=== PATIENT | male | born 1960 | race Caucasian/White ===

== ENCOUNTER 2020-11-26 17:26 | Emergency (ER) | payer OTHER ==
[~2020-11-26] VITALS: Ht 172.7 cm; Wt 90.7 kg
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
[2020-11-26 17:28] VITALS: BP 155/71
[2020-11-26 19:14] LABS: ABSOLUTE NEUTROPHILS 3.4 thou/uL (1.4-8.2); BASOPHILS 1.3 % (0.0-2.0); HEMATOCRIT 38.8 % (42.0-52.0); HEMOGLOBIN 12.6 gm/dL (14.0-18.0); LYMPHOCYTES 33.6 % (24.0-44.0); MCH 27.4 pg (26.0-34.0); MCHC 32.5 g/dL (28.0-37.0); MCV 84.3 fL (80.0-100.0); MONOCYTES 10.3 % (1.0-8.0); PLATELET COUNT 271 thou/uL (150-400); POLYS 48.8 % (36.0-66.0); RDW 17.2 % (10.5-14.5)
[2020-11-26 19:25] LABS: CALCIUM 8.5 mg/dL (8.5-10.1); CREATININE 1.1 mg/dL (0.7-1.3); POTASSIUM 4.3 mmol/L (3.5-5.1)
[2020-11-26 19:31] LABS: ALBUMIN 2.9 g/dL (3.4-5.0); TOTAL BILIRUBIN 0.4 mg/dL (0.2-1.0)
[2020-11-27 01:44] VITALS: BP 125/56
[2020-11-27 01:56] VITALS: BP 136/73
--- NOTE | 2020-11-27 07:37 | EKG ---
[address] [address] ELECTROCARDIOGRAM REPORT Name: AZAEL CORDOVA [facility] [id number] Admission: 11/26/20 Attend Phys: Discharge: 11/27/20 Date of : 58 Report #: [id number] [facility] ED Test Date: 2020-11-26 Test Time: 18:16:04 Pat Name: AZAEL CORDOVA Department: Room: [facility] Gender: M [employer] Dean: adam : 1960 Requested By: Charles Baltazar Order Number: [id number] MD: Clay Guevara Measurements Intervals [place] Rate: 66 P: 65 MO: 124 QRS: 56 QRSD: 79 T: 52 QT: 444 QTc: 466 Interpretive Statements Sinus rhythm Baseline wander in lead(s) I,II,aVR Compared to ECG 06/19/2006 10:32:22 No significant changes Electronically Signed On 11-27-2020 7:37:48 CDT by Clay Guevara [email or web address] <ELECTRONICALLY SIGNED> By: Clay Guevara MD, [facility] 11/27/20 0737 15 15 Clay Guevara MD, FACC /EPI
[2020-11-27] MEDS ORDERED: DICYCLOMINE HCL20 MG PO (08:09)
[2020-11-27] MEDS ORDERED: LEVOTHYROXINE75 MCG PO (08:09)
[2020-11-27] MEDS ORDERED: TAMSULOSIN HCL0.4 MG PO (08:10)
[2020-11-27] MEDS ORDERED: FINASTERIDE5 MG PO (08:10)
[2020-11-27] MEDS ORDERED: PROTONIX40 M2 PO (08:10)
[2020-11-27] MEDS ORDERED: FENOFIBRATE160 MG PO (08:10)
[2020-11-27] MEDS ORDERED: NEURONTIN 300M300 M2 PO (08:10)
== END 2020-11-27 02:20 ==
LOC: ER 17:26 → EROBS 19:08 → ER 19:08 → EROBS 19:28 → ER 11-27 02:20
PROVIDERS: Emergency Medicine
DX: U07.1 COVID-19 (principal); R45.851 Suicidal ideations; Z88.6 Allergy status to analgesic agent; Z88.1 Allergy status to other antibiotic agents; Z88.0 Allergy status to penicillin

== ENCOUNTER 2020-11-26 18:02 | Inpatient (IN) | payer OTHER ==
[~2020-11-26] VITALS: Ht 172.7 cm; Wt 107.5 kg
[2020-11-27 02:05] VITALS: BP 117/45
--- NOTE | 2020-11-27 06:41 | NUR ---
RECEIVED REPORT FROM PAPER BOX MAKERRADHA VEGA, PT ARRIEVED ON UNIT 11-27-20204 PT AAOX4, VSS, RR EVEN AND NONLABORED ON RA. 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 PT RECENTLY HE HAS HAD THOUGHTS OF OF KILLING HIMSELF, PT DENIES PLAN. PT CANNOT REMEMBER WHAT PHARMACY HE USES. PT REPORTS BEING TIRED, PT LUNGS CLEAR, HT RR, ABD SOFT AND ACTIVE. HCP CONTACTED, SPOKE WITH PHARMACY FOR MEDICATION VEERIFICATION. PT WILL CONTINUE TO BE MONITOR PER [facility] PROTOCOL.
[2020-11-27] MEDS ORDERED: LEVOTHYROXINE75 MCG PO (08:09)
[2020-11-27] MEDS ORDERED: DICYCLOMINE HCL20 MG PO (08:09)
[2020-11-27] MEDS ORDERED: FENOFIBRATE160 MG PO (08:10)
[2020-11-27] MEDS ORDERED: NEURONTIN 300M300 M2 PO (08:10)
[2020-11-27] MEDS ORDERED: TAMSULOSIN HCL0.4 MG PO (08:10)
[2020-11-27] MEDS ORDERED: PROTONIX40 M2 PO (08:10)
[2020-11-27] MEDS ORDERED: FINASTERIDE5 MG PO (08:10)
[2020-11-27 10:52] VITALS: BP 106/57
[2020-11-27 11:30] VITALS: BP 106/57
--- NOTE | 2020-11-27 13:02 | NUR ---
Pt lives in an ISL and likely has a business support administrator. TIEN contacted [facility] and identified is SC as Callie Swann. SW left a msg on her vm. Number to [facility] is [phone]. TIEN contacted pt's ISL. No answer. No vm picked up. SW team will cotninue to follow pt during his stay on this unit.
--- NOTE | 2020-11-27 13:17 | NUR ---
1315 RESUMMED CARE FROM OVERNIGHT SHIFT THIS AM, PATIENT IN ROOM SLEEPING. PATIENT DID GET UP ATE BREAKFAST TOOK MEDICATION WITHOUT INCIDENCE. PATIENT ALERT ORIENTED TIMES 4 PATIENT CALM COOPERATIVE. PATIENT HAD CONCERNS ABOUT HIS JOB SO I CALLED THE HIS PLACE OF EMPLOYMENT; PATIENT TALKED WITH THE HEAD LOADER AND TOLD THEM HE WAS IN THE HOSPITAL. PATIENT PARTICIPATES IN GROUPS PATIENT DENIES SI/HI/AH/VH AT PRESENT. PATIENTS ABDOMEN SOFT BOWEL SOUNDS PRESENT. PATIENT COMPLAINED OF RT SHOULDER PAIN DR CULLEN ORDERED XRAY OF THE SHOULDER. WILL CONTINUE TO MONITOR PATIENT FOR SAFETY AND BEHAVIORS.
[2020-11-27 15:50] LABS: CHOLESTEROL 172 mg/dL (<200); HDL CHOLESTEROL 57 mg/dL (>40); LDL CHOLESTEROL 89 mg/dL (<100); TRIGLYCERIDE 134 mg/dL (<150); VLDL 27 mg/dL (<40)
[2020-11-27 16:15] LABS: FOLIC ACID 12.4 ng/mL (8.6-58.9)
[2020-11-27 19:59] VITALS: BP 132/57
[2020-11-27 20:04] VITALS: BP 132/57
--- NOTE | 2020-11-27 23:37 | NUR ---
Assumed care on 11/27/20 @ 1900, lying in bed awakens to voice, respirations even and nonlabored. Denies active SI, Denies ROGERS/HV. Calm and cooperative, no behaviors noted. Reports shoulder pain of 4/10, PRN Tramadol 50mg provided for pain. Takes meds whole with water, no difficulties taking medication. Bed in low position, bed alarm set, will continue to moist. [facility] for safety and comfort.
[2020-11-28 01:06] LABS: GLYCOHEMOGLOBIN (HGB A1C) 6.2 % (4.8-5.6)
--- NOTE | 2020-11-28 09:38 | NUR ---
Admit to [facility]. Pt appears with good intakes since admit. On regular diet. Meds reviewed. Labs reviewed. Noted with A1c 6.2, no hx DM. Low nutrition risk at this time.
[2020-11-28 11:09] VITALS: BP 121/57
--- NOTE | 2020-11-28 18:18 | NUR ---
VISIBLE IN DAYROOM SITTING QUIETLY WITH MALE PEER-CONSTRICTED AFFECT. DURING 1;1 AND AM ASSESSMENT WITH THIS RN OFFERS VAGUE RESPONSESSTATES HE IS"NOT REALLY SURE" WHY HE IS HERE AND UNABLE TO ENDORSE ANY TYPE OF PSYCHIATRIC SYMPTOMS. CONVERSATION FOCUSES ON SOMATIC COMPLAINTS-IE PAIN IN RIGHT SHOULDER WHICH HE RATES A 6 ON 1-10 SCALE-REQUESTED AND RECEIVED ULTRAM 50MGPO PRN AT 0900 AND REPEATED AT 1730 FOR RIGHT SHOULDER PAIN WITH VERBALIZED GOOD RELIEF REPORTED . DOES ATTEND GROUPS WITH PROMPTINGBUT IS A PASSIVE PARTICIPANT. GAIT STEADY WITHOUT ASSISTIVE DEVICES.
[2020-11-28 20:09] VITALS: BP 112/83
--- NOTE | 2020-11-29 02:19 | NUR ---
Assumed care on 11/28/20 @ 1900, Spent the evening in his room and in the day room during snacks. Took meds whole with water. When Tramadol 50mg was open @ 2300, elected to take it for shoulder pain. Reports depression and reports still has thoughts about killing self. Reports moderate amount of anxiety, and concerns about leaving the hospital on wednesday. Ambulates with a steady gait, continent of B&B. In bed at this writing with eyes closed, respirations even and unlabored, bed in low position, will continue to monitor for safety and comfort as per unit protocol.
--- NOTE | 2020-11-29 08:10 | H ---
[facility] [place] [address] HISTORY AND PHYSICAL Name: AZAEL CORDOVA Room #: 528A-A ADM IN .R.#: [id number] Admission: 11/27/20 Attend Phys: Connor Do DO Discharge: Date of : 58 Report #: [id number] THIS REPORT FOR: cc: FAM - No family physician/PCP FAM - No family physician/PCP Connor Do DO ~ DATE OF SERVICE: 11/27/2020 1. INPATIENT PSYCHIATRIC EVALUATION ATTENDING PSYCHIATRIST: Connor Do DO LADLE MECHANIC: Connor Tamez MD REASON FOR ADMISSION: Suicidal ideation. SOURCE OF INFORMATION: Records from [facility] and interview with the patient. HISTORY OF PRESENT ILLNESS: A 60-year-old male sent to us from [facility] with chief complaint of suicidal intention to run in traffic, burn himself up. Other methods specified include cut wrists, drink gas. The patient lives in an SNF with staff 24 hours a day. He reports feeling depressed, feels terrible, got worse over the last 6 months. He hears voices telling him to harm himself. His voices also tell him that he is going to lose his job. 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 The patient had some accompanying bizarre symptoms stating that his arms and legs are going to give out. He describes that he has not fallen, but he feels like they are, which have worsened over the last several weeks. The patient is a client of Dr. Carlos A Altman at [facility]. The patient has Medicare A and B and Medicaid. Additional medical history is hypothyroidism, hyperlipidemia, normal pressure hydrocephalus, gastroesophageal reflux disease, pyoderma gangrenosum, chronic constipation. Psychiatric history, schizophrenia. He also had special education requirements from 2 to 12th grade, but had a modified curriculum. PAST SURGICAL HISTORY: Lipoma removal, toe surgery, cholecystectomy, umbilical hernia repair, left ankle, shoulder surgery. He is complaining of moderate right shoulder pain on x-rays of his right shoulder. SOCIAL HISTORY: Nonsmoker, nondrinker. No illicit drug use. Denies history of physical, sexual or emotional abuse. ALLERGIES: MESALAMINE, MORPHINE, NITROGLYCERIN, PENICILLINS, ASPIRIN, ERYTHROMYCIN BASE, HALOPERIDOL, IBUPROFEN, METOCLOPRAMIDE, AND PROCHLORPERAZINE. [address] [address] HISTORY AND PHYSICAL Name: AZAEL CORDOVA Room #: 528A-A [facility] IN [facility]#: [id number] Admission: 11/27/20 Attend Phys: Connor Do, Discharge: Date of : 58 Report #: [id number] Additionally, the patient was alert and oriented x 4. It looks like they did a tele-psych consult in the ER. He complains about several of his [employer] workers not taking him seriously, sounds like [employer] is the cutting machine operator of his [place]. Does not feel his medications are working. He is a little anxious, thus he is getting 5-6 hours of sleep at night. Denies homicidal ideation. Said his psychiatrist is aware of his depression, suicidal thoughts over the last few months, but told him to go to the ED today because of his thoughts. It looks like they tried to reach Dr. Altman, but no responses after hours. He reports past psychiatric hospitalizations, most recently 2 years ago, He reported Reports 1 suicide attempt 6 years ago when I was with another agency, ran out in the street and they had to come after me. CURRENT MEDICATIONS: Zyprexa 15 mg at bedtime, Lexapro 20 mg daily. Believes he is on Depakote ER t.i.d. for seizures, gabapentin 300 mg t.i.d. He is not in therapy, group therapy did not help much. He is able to do and maintain some ADLs. Denies legal history. LABORATORY DATA: Sodium 143, potassium 4.1, chloride 104, bicarbonate 31, anion gap 12, BUN 15, creatinine 1.3, GFR 59, glucose 100, calcium 9.0. Total bilirubin 0.3, AST 13, ALT 20, alkaline phosphatase 81. Troponin less than 0.020. Total protein 7.8, albumin 3.3. White count 7.2, H and H 13.2 and 42.0, platelet count 281. There is an affidavit done by [facility]. The patient states "I want to kill myself, I would rather jump out of a car that was going very fast or slit my wrist really hard to turn the stove burner on really hot until it brings me to ." On interview today on the Geriatric Psych Unit, interviewed in his room, complaining of shoulder pain. As stated above, discussed the voices bothering him. His displeasure was with some of his chcf workers. He stated he has lived in a chcf for several years. X-ray results showed mild degenerative changes of the acromioclavicular joint. No acute bony abnormality. Physical done last night. REVIEW OF SYSTEMS: CONSTITUTIONAL: Denied fever, chills, change in appetite, diaphoresis, malaise. EYES: Denies visual change, conjunctivitis, drainage, decreased hearing or double vision. HEENT: Denies headache, dizziness, difficulty swallowing, hearing changes, ear infections. RESPIRATORY: Denies dyspnea on exertion, hemoptysis, history of asthma, orthopnea, respiratory distress. [facility] [address] [place] [address] HISTORY AND PHYSICAL Name: AZAEL CORDOVA Room #: 528A-A ADM IN M.R.#: [id number] Admission: 11/27/20 Attend Phys: Connor Do DO Discharge: Date of : 58 Report #: [id number] CARDIOVASCULAR: Denies palpitations, chest pain with exertion, dyspnea on exertion, edema, irregular heart rate, or lightheadedness. GASTROINTESTINAL: Reported nausea. MUSCULOSKELETAL: Denies back pain, muscle pain, joint pain, joint swelling, edema, or gout. Interestingly, he has noted he did report significant right shoulder pain and limited range of motion. SKIN: Denies rash, bruising, abrasion, change in color, change in hair or nails. NEUROLOGIC: Denies tingling, focal weakness, weakness, altered mental status or dizziness. PSYCHIATRIC: Reports depression, anxiety, auditory and visual hallucination. On visual hallucination, he describes pictures. ENDOCRINE: Denies diabetes mellitus, excessive sweating, flushing, intolerance to cold. HEMATOLOGIC AND LYMPHATIC: Denies easy bruising, bleeding or anemia, otherwise review of systems was negative. Physical exam abnormal for limited range of motion at least 50% of the right shoulder joint with flexion. Laboratories done at [place], chemistries were closely aligned with those done at [place]. Abnormalities include BUN 19, glucose 107, ALT 19, albumin 2.9. H and H 12.6 and 38.9, white count 7.0, platelet count 271. COVID-19 serology was recently positive on the [place] test, but negative on the PCR and he was judged to be acceptable risk for admission to [facility] at [place]. PHYSICAL EXAMINATION: VITAL SIGNS: Temperature 36.3, pulse 80, respirations 18, BP 106/57, O2 sat 92%. MUSCULOSKELETAL: Impaired gait, slow. Trendelenburg to left. MENTAL STATUS EXAMINATION: This is a well-developed, mildly obese male, BMI 36. Attention fair. Concentration limited. Speech normal in rate. Thought process: Linear and goal directed. Thought content: Focused on the voices, pictures. They advised him to call his work that he was ill and could not come in when he did. No suicidal ideation. Denied homicidal ideation. There is auditory, visual, and tactile hallucinations. Memory not formally tested. Insight limited. Judgment limited. Fund of knowledge probably slightly below average. FORMULATION: A 60-year-old obese male transferred from [place] for active SI with plan. DIAGNOSES: At this time, major depressive disorder, recurrent episode, severe degree; schizophrenia by history. [facility] [address] [place] [address] HISTORY AND PHYSICAL Name: AZAEL CORDOVA Room #: 528A-A ADM IN M.R.#: [id number] Admission: 11/27/20 Attend Phys: Connor Do DO Discharge: Date of : 58 Report #: [id number] MEDICAL MORBIDITIES: Include obesity, hypothyroidism, hyperlipidemia, gastroesophageal reflux disease, right shoulder pain. He is COVID vaccinated. PLAN: Voluntary admission to [facility] Unit to evaluate and stabilize. He was not able to give me a great medication list. I went ahead and started him on 10 mg of olanzapine twice a day. I ordered tramadol 50 mg q.6 hours p.r.n. for severe pain. I do not believe he has a history of seizure disorder. I spoke with Dr. Altman who prescribe Depakote as its exact role is unclear. Other meds ordered including zinc sulfate, vitamin D, fenofibrate, Bentyl, tamsulosin, pantoprazole, levothyroxine 75 mcg daily, gabapentin 300 mg t.i.d., finasteride 5 mg p.o. daily for his BPH. Plan, we will evaluate, stabilize, obtain collateral. LENGTH OF STAY: 5-10 days. We will try and get his hallucinations under control. 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 Additionally, reports he was born and raised in the [facility]. He has one sister. Both his parents are . He denies history of himself having stroke, heart attack, cancers. I did not get a great family history from him. Time spent on this case was greater than 60 minutes, greater than 50% of time was spent in review of records, coordination of care. strengths: insured, in ISL weaknesses: developmental disability, chronic mental illness, poor coping skills <ELECTRONICALLY SIGNED> By: Connor Do DO 11/29/20 0810 1345 1600 Connor oD DO /nt
[2020-11-29 09:26] VITALS: BP 141/64
--- NOTE | 2020-11-29 11:44 | NUR ---
Yesterday TIEN contacted [employer] and spoke with Hog Handler Coating Engineer Silvana who gave background hx on pt. She said she used to be his SC 10 years ago, and struggles with SI when he is employed. 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 She said pt was recently in the hospital, she is unsure of where, on September 09 for "stomach issues" and he also asked for a swallow study as well as other services. She said that he last saw his psych Dr. Altman with [facility] on November 05 who increased meds for sleeping and depression. 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 She said in her opinion, out of all of his other dx, this one fits the most with him as he is constantly seeking medical attention and believes something is wrong. TIEN asked if she thought he would be better if he instead went to a day program. She said if he wants to she would gladly arrange that. TIEN explained that he will likely discharge at the beginning of next week and SW will make an appt for him at for a hospital follow-up. She said ok. She gave her phone number of [phone] to provide updates on his discharge. TIEN and Dr. Do met with pt. TIEN asked him if he wants to work, or simply wants to get out of the house every day. Pt's response was that he really wants to work. He said he overall likes his current job, but does not like that he has to stand for several hours at a time. He likes a job because he likes making money; he currently has $1000 in his acct in which he is constantly made to spend down, and wants to save more money. TIEN explained that due to the program he is in (Medicaid waivered services), he has to choose between making money and his program as he cannot have over a certain amount in his acct. 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 TIEN advised that this is a very good time for him to explore what he wants to do and dislikes doing as many companies are looking for workers due to the pandemic. TIEN advised that if he does not like a job he has gotten than he could always go get another one. He said ok. He then asked if SW can arrange a meeting between her, him, and [employer] staff as he feels as if a staff member is treating him unfairly. SW asked if he has told his SC or [employer] staff yet? He said no; because of the pandemic he has not met his new SC. TIEN explained that his SC is his biggest advocate and can assist. Their job is to ensure that his staff is not treating him unfairly. SW agreed to relay the info about [employer] to his [employer] staff on his behalf and suggest a meeting with him and his ISL staff. Pt agreed. SW Team will continue to follow pt during his stay on this unit.
--- NOTE | 2020-11-29 18:50 | NUR ---
REPORTED FEELING DEPRESSED THIS AM UPON AM ASSESSMENT AT 0930-WHEN ASKED ABOUT SPECIFIC DEPRESSIVE SYMPTOMS STATES "SUICIDE THOUGHTS"DENIES SPECIFIC PLAN OR INTENT. WHEN QUESTIONED UNABLE TO ID TRIGGER OR PRECIPITAN.DID AGREE TO REMAIN OUT OF ROOM AND INVOLVED IN ACTIVITIES TO ALLOW FOR CLOSE MONITORING AND DISTRACT SELF FROM CHRONIC SI-HAS BEEN VISIBLEIN DAYROOM AND DOES ATTEND ALL ACTIVITES -REQUESTED AND RECEIVED TRAMADOL 50MG PO PRN AT 1300 FOR RIGHT SHOULDER PAIN RATED A 10 ON 1-10 SCALE-RECEIVED ATIVAN 0.5MG PO PRN AT 1330FOR ANXIETY RATED A 10 ON1-10 SCALE. AFFECT/BEHAVIOR INCONGRUENT WITH 10 RATING PROVIDED HE HAS BEEN NOTED TO BE SITTING CALMLY IN DAYROOM AND PRESENTS WITH A FLAT AFFECT. REQUESTED AND RECEIVED REPEAT OF ULTRAM 50MG PO PRN AT 1900 FOR REPORTED SHOULDER PAINON RIGHT RATED AN 8 ON 1-10 SCALE. DOES REPORT MSLIGHT IMPROVEMENT IN SI AND DENIES PLAN/INTENT AT THIS TIME.
[2020-11-29 19:40] VITALS: BP 142/55
[2020-11-30 02:20] VITALS: BP 142/55
--- NOTE | 2020-11-30 04:01 | NUR ---
11/29/2020- Alert and oriented, would like something for pain states "I hit my toe" Pt verbalized pain in right toe, too soon for tramadol but he was okay with taking Tylenol along with his night time medications. Pt wanted an explanation about his medication so we discussed the medications that he was taking. He asked about when he could have his tramadol and ativan. He wanted to be woke up discussed I wouldn't wake him up but if he is up and ask for them I will give it. Pt has slept so far most of the night. Denies SI/HI/AH/VH very pleasant this shift and even jokes with this nurse. will continue to monitor throughout the shift.
[2020-11-30 09:14] VITALS: BP 119/57
[2020-11-30 09:25] VITALS: BP 119/57
[2020-11-30 10:34] VITALS: BP 119/57
--- NOTE | 2020-11-30 11:57 | NUR ---
1155 RESUMMED CARE FROM OVERNIGHT SHIFT THIS AM, PATIENT ALERT ORIENTED TIMES 3. PATIENT DENIES SI/HI/AH/VH AT PRESENT PATIENT STATES HE HAS SOME DEPRESSION. PATIENT STATES HE WOULD LIKE TO MOVE TO A CORRECTION HE FEELS THAT HE WOULD DO BETTER WITH MORE STRUCTURE. PATIENTS ABDOMEN SOFT BOWEL SOUNDS PRESENT PATIENTS LUNGS CLEAR. PATIENT PARTICIPATES IN GROUP PATIENT COMPLAINED OF HIS SECOND TOE HURTING HE STUMPED HIS TOE. DR CULLEN ORDERED AN XRAY OF THE FOOT. WILL CONTINUE TO MONITOR PATIENT FOR SAFETY AND BEHAVIORS.
--- NOTE | 2020-11-30 16:52 | NUR ---
Visit with pt. Pt. expressed still having feelings to harm self. Pt. further expressed that he would like to be in a placement where he is not living by himself. Pt. stated his sister could live with him. FAX sent to [facility] - updates for pt. from 11/27 - 11/30
[2020-11-30 19:40] VITALS: BP 108/48
--- NOTE | 2020-11-30 19:47 | NUR ---
Assumed care on 11/30/20 @ 1900, in bed in his room, awake and responds when spoken to. Sits up and cooperates with assessment, Awake alert oriented x3, asks for ativan, then asks for Tramadol. Reports pain of 6/10 in toe and 6/10 in right shoulder. Acknowledges depression, but denies SI/HI and hallucinations. Will continue to observe for unit protocol and safety and comfort of patient.
[2020-11-30 19:51] VITALS: BP 108/48
--- NOTE | 2020-11-30 19:51 | NUR ---
Assumed care on 11/30/20 @ 1900, seated in andres chair in the day room, chair alarm in place to protect patient from falls, snoozing, but responds to voice and cooperates with assessment. HRRR, Lung sounds CTA, ABD N x 4Q. Will continue to monitor for safety and comfort as per unit protocol.
[2020-12-01 09:32] VITALS: BP 133/59
[2020-12-01 10:17] VITALS: BP 138/59
[2020-12-01 11:26] VITALS: BP 138/59
--- NOTE | 2020-12-01 12:52 | NUR ---
1250 RESUMMED CARE FROM OVERNIGHT SHIFT THIS AM, PATIENT IN ROOM SLEEPING. PATIENT ALERT ORIENTED TIMES 4 PATIENT DURING BREAKFAST ASKED ME FOR ATIVAN AND TRAMADOL. PATIENT DENIES SI/HI/AH/VH AT PRESENT BUT STATES HE IS DEPRESSED AND RATES IT AT A 5. PATIENT GOES TO GROUP BUT NOT REALLY PARTICIPATING, PATIENT LIES TO ASK FOR EXTRA SNACKS. PATIENT APPEARS TO NOT BE FOCUSING ON HIS TREATMENT. HE HAS NOT DISPLAYED BEHAVIORS BUT JUST WANTS TO EAT SNF GO TO BED. PATIENTS ABDOMEN SOFT BOWEL SOUNDS PRESENT I GAVE PATIENT PRUNE JUICE TO HELP WITH CONSTIPATION. PATIENTS LUNGS CLEAR WILL CONTINUE TO MONITOR PATIENT FOR SAFETY AND BEHAVIORS.
--- NOTE | 2020-12-01 16:05 | NUR ---
SW met with Pt. Pt. expressed thoughts of self-harm/suicidal ideation. Pt. is concerned about returning to the previous placement, [facility]. He is adamant about not returning and desires to go to the [facility] in [place] or any other assisted living facility.
[2020-12-01 19:39] VITALS: BP 118/58
[2020-12-01 20:40] VITALS: BP 142/78
--- NOTE | 2020-12-02 04:22 | NUR ---
12-01-20 CARE [facility] 1899. LATER OBSERVED PT WALKING TO DAY ROOM, PT AAOX4, VSS, RR EVEN AND NONLABORED ON RA. PT DENIES PAIN AND SI/HI. PT PRESENTS CALM AND COOPERATIVE. 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 LATER NOTED PT RESTING IN BED WITH EYES CLOSED, PT BED LOWEST POSITIIN, LOCKED, AND ALARM ON. PT WILL CONTINUE TO BE MONITR PER [facility] PROTOCOL.
[2020-12-02 09:39] VITALS: BP 116/60
[2020-12-02 09:51] VITALS: BP 116/60
--- NOTE | 2020-12-02 10:57 | NUR ---
1055 RESUMMED CARE FROM OVERNIGHT SHIFT THIS AM, PATIENT IN ROOM SLEEPING. PATIENT GOT UP ATE BREAKFAST TOOK MEDICATION WITHOUT INCIDENCE; PATIENT DENIES SI/HI/AH/VH AT PRESENT. PATIENT STATES HE HAS SOME DEPRESSION RATES IT AT A 3. PATIENTS ABDOMEN SOFT BOWEL SOUNDS PRESENT PATIENT HAD BOWEL MOVEMENT TODAY. PATIENTS LUNGS CLEAR PATIENT ALERT ORIENTED TIMES 4 CALM COOPERATIVE HAS NOT DISPLAYED ANY BEHAVIORS. WILL CONTINUE TO MONITOR PATIENT FOR SAFETY AND BEHAVIORS.
[2020-12-02 19:00] VITALS: BP 152/76
--- NOTE | 2020-12-03 03:40 | NUR ---
12-02-20 CARE TRANSFERRED 1899. LATER PT AAOX4, VSS, RR EVEN AND NONLABORED ON RA, PT DENIES SI/HI AND DENIES PAIN. PT PRESENTS ANXIOUS, BUT REMAINS CALM AND COOPERATIVE. PT REPORTS TALKING TO DOCTOR AND PRECISION GRINDER EXTERNAL TODAY AND TALKS ABOUT HE IS GOING HOME TOMORROW. DURING MEDICATION PT REPORTED PAIN IN HIS RIGHT SHOULDER AND SCORED 6 ON 0-10 SCALE. DURING REASSESSMENT NOTED PT WAS RESTING IN BED WITH EYES CLOSED. PT BED IS LOWEST POSITION, LOCKED WITH ALARM ON. PT WILL CONTINUE TO BE MONITOR PER [facility] PROTOCOL.
[2020-12-03] MEDS ORDERED: DICLOFENAC SOD100 G1 TOP (08:26)
[2020-12-03] MEDS ORDERED: DIVALPROEX SOD500 M1 PO (08:27)
[2020-12-03] MEDS ORDERED: ZYPREXA 5 MG TAB5 M1 PO (08:28)
[2020-12-03] MEDS ORDERED: HYDROXYZINE HCL25 M2 PO (08:29)
[2020-12-03] MEDS ORDERED: VITAMIN D325 MC2 PO (08:29)
[2020-12-03] MEDS ORDERED: ZINC SULFATE50 MG PO (08:30)
[2020-12-03 09:57] VITALS: BP 121/59
--- NOTE | 2020-12-03 10:10 | NUR ---
Alert and orientated to person, place but not to time. Denies SI/HI. Compliant with meds and directions for discharge. Breath sounds clear. Reg HR auscultated. Color pink with brisk capillary refill and palpable peripheral pulses. +1 edema in lower extremities, greater on R than L. Independent with voiding. Active bowel sounds over large, soft, distended abdomen. Ambulates with regular, steady gait. Report called to Ayana Oznua at [facility], no questions. Called Sourav Paul criminal research specialist and [facility], states he is not in office today, left [facility] [place] unit. Spoke with Yumiko Mckee, sister and next of kin. Aware of transfer to [facility] and verbalizes awareness of Medicare/Medicaid appeal process if family was not in agreement with him going back to [facility]. Dressed and ready for discharge. Sitting in dining room without s/o distress.
--- NOTE | 2020-12-03 11:45 | NUR ---
Yesterday, TIEN made pt a psych appt with Dr. Altman with [facility]. The first available they had was Dec 27 @ 09:15. She also contacted Silvana with [facility]. No answer. TIEN left a msg that pt is discharging at 10 am on 12/03, and also that pt would benefit from a meeting with [facility] staff, [facility], and pt. TIEN and Dr. Do also met with pt and gave suggestions. TIEN advised to pt that if he continues to go to the hospital for needs that can be addressed with a doctor, he could eventually end up with a state guardian. Pt apologized for his behaviors. TIEN gave him suggestions on things he can do such as ask his doctor for a referral to a chiropractor. TIEN also provided education to him that it does not matter if his staff agree with him going to see his PCP often, that he has a right to do so. Pt appeared to understand what TIEN said to him. TIEN provided an update to Kathy with [facility] and confirmed that they were still transporting pt. TIEN team will continue to follow pt during his stay on this unit.
--- NOTE | 2020-12-03 11:57 | NUR ---
TIEN D/C NOTE SW faxed discharge docs, including the SW handout she created with pt's psych appointment on it, to Karla Porter, [facility]. TIEN placed a copy of the handout in pt's take home folder, and also gave pt a copy in hand. No other needs for SW team to address at this time.
--- NOTE | 2020-12-04 22:55 | D ---
[facility] [place] [address] DISCHARGE SUMMARY Name: AZAEL CORDOVA Room #: 528A-A [facility] IN ..#: [id number] Admission: 11/27/20 Attend Phys: Connor Do DO Discharge: 12/03/20 Date of : 58 Report #: [id number] THIS REPORT FOR: cc: FAM - No family physician/PCP FAM - No family physician/PCP Connor Do DO ~ DATE OF SERVICE: 12/03/2020 INPATIENT PSYCHIATRIC DISCHARGE SUMMARY ATTENDING PSYCHIATRIST: Connor Do DO HISTORIOGRAPHER: Sourav Avilez M.D. DISCHARGE DIAGNOSES: Schizophrenia, unspecified; major depressive disorder, moderate degree, improved; possible somatoform disorder. The patient's medical comorbidities include hypothyroidism, hyperlipidemia, GERD, obesity with a BMI of 36. The patient is being [facility] to [facility]. Psychiatric care to be provided by Dr. Carlos A Altman. It looks like appointment is on 12/27/2020 at 9:15 a.m. He is to see his primary care physician in one month. DISCHARGE MEDICATIONS: Levothyroxine 75 mcg oral daily for hypothyroidism, dicyclomine 20 mg oral with meals for bowel motility, tamsulosin 0.4 mg oral daily for BPH, fenofibrate 160 mg oral daily for hypertriglyceridemia, finasteride 5 mg oral daily for BPH, Neurontin 300 mg oral 3 times a day for pain and neuropathy, pantoprazole 40 mg oral daily for GERD, diclofenac 2 grams topical twice a day after meals on right shoulder for arthritis for another 5-day period, Depakote sodium ER 500 mg oral 3 times a day for mood stabilization, olanzapine 12.5 mg oral twice daily for psychosis, hydroxyzine 50 mg oral at bedtime for sleep, zinc sulfate 220 mg oral daily for supplementation, vitamin D3 of 4000 International Units daily for supplementation. The patient should have a heart healthy diet. Activity level as tolerated. No alcohol, no illicit drugs. LABORATORY DATA: Significant laboratories this admission, from 11/26/2020, H and H 12.6 and 38.9. White count 10.0, platelet count 271. Chemistry: Sodium 143, potassium 4.3, chloride 106, bicarbonate 30, anion gap 17, BUN 19, creatinine 1.1, estimated GFR 68, glucose 107. Hemoglobin A1c 6.2, calcium 8.5, total bilirubin 0.4, AST 18, ALT 19, alkaline phosphatase 71, total protein 7.0, albumin 2.9. Triglycerides 134. Cholesterol total 172, LDL 89, HDL 57. Vitamin B12 level high at 1781. Folate normal at 12.4. TSH very slightly [address] [address] DISCHARGE SUMMARY Name: AZAEL CORDOVA Room #: 528A-A [facility] IN ..#: [id number] Admission: 11/27/20 Attend Phys: Connor Do DO Discharge: 12/03/20 Date of : 58 Report #: [id number] elevated at 4.945. Imaging this admission, foot x-ray of his right foot, had fourth toe pain, probable nondisplaced fracture of the proximal fourth phalanx. Also, on 11/27/2020 had an x-ray of the shoulder, showed mild degenerative changes of the acromioclavicular joint. REASON FOR ADMISSION: Back on 11/27/2020, a 60-year-old male, sent to us from [facility] with chief complaint of suicidal ideation to run in the traffic to hurt himself up and other methods such as cut wrist. HOSPITAL COURSE: The patient was admitted to Geriatric Psychiatry Unit. The patient denied intent shortly after admission to act on the thoughts which gotten referred to us. It was clear the patient was in some conflict from the staff who is with the [facility]. Additional information gotten through [employer] geophysical support specialist. The patient has had multiple medical presentations during the course of the stay. Efforts were made to reach Dr. Carlos A Altman, his psychiatrist, did not get call back. Therefore, I kept him on his home Depakote regimen 500 mg oral 3 times a day, Depakote ER. Olanzapine was slightly increased, he was on 20 mg a day, I increased it to 12.5 mg twice a day. The patient had some unrealistic ideas and expectations about going to an assisted living. Discussed with him he did not qualify for this. Also, there are limitations to his working given he is on Medicaid in [place]. He described his job to 6 hours a day, 4 days a week at discharge, which sounded pretty taxing. It is recommended to the patient with his financial services assistant to explore other jobs that may not be as physically taxing. He had reported several times recently where he felt like his legs are going to give out on the job. At the day of discharge, he was not suicidal or homicidal. PHYSICAL EXAMINATION: VITAL SIGNS: On the day of discharge are as follows: Temperature 35.5, pulse 61, respirations 17, BP 121/59, O2 sat 93%. MUSCULOSKELETAL: Slow gait, normal station. Wearing glasses. MENTAL STATUS EXAMINATION: This is a well-developed, age appearing male. Attention fair. Concentration limited. Speech slow, normal volume. Thought process, linear and goal directed. Thought content, focused on typically somatic and symptoms. Denied suicidal or homicidal ideation, auditory or visual type hallucinations. Memory not formally tested. Insight limited. Judgment, fair to limited. Fund of knowledge, below average. Prognosis for this patient is fair to guarded depending on better coordination of services between [facility], psychiatrist and patient. The patient was warned that further [facility] [address] [place] [address] DISCHARGE SUMMARY Name: JEANNEAZAEL WILCOX Room #: 528A-A [facility] IN [facility]#: [id number] Admission: 11/27/20 Attend Phys: Connor Do DO Discharge: 12/03/20 Date of : 58 Report #: [id number] repeat hospital presentations could initiate an effort for him to be under guardianship. <ELECTRONICALLY SIGNED> By: Connor Do DO 12/04/20 [id number] Connor Do DO /nt
== END 2020-12-03 10:10 | DRG 885 ==
LOC: SBH 18:02
PROVIDERS: ADMIT Psychiatry & Neurology Psychiatry; ATTEND Psychiatry & Neurology Psychiatry
DX: F20.9 Schizophrenia, unspecified (principal); R45.851 Suicidal ideations; F33.2 Major depressive disorder, recurrent severe without psychotic features; E03.9 Hypothyroidism, unspecified; E78.5 Hyperlipidemia, unspecified; K21.9 Gastro-esophageal reflux disease without esophagitis; Z68.36 Body mass index [BMI] 36.0-36.9, adult; N40.0 Benign prostatic hyperplasia without lower urinary tract symptoms; G62.9 Polyneuropathy, unspecified; M25.511 Pain in right shoulder; M79.674 Pain in right toe(s); E66.9 Obesity, unspecified; Z88.1 Allergy status to other antibiotic agents; Z88.8 Allergy status to other drugs, medicaments and biological substances; Z88.0 Allergy status to penicillin
CPT/HCPCS: 10880